=== PATIENT | female | born 1995 | race Asian ===

== ENCOUNTER 2022-03-26 21:41 | Emergency (ER) | payer OTHER ==
--- OUTSIDE RECORDS SUMMARY | 2022-03-26 21:45 | XMS REPORT | Continuity of Care Document ---
:1995 Author Organization [facility] t Address [address] [place] [address] Dr. Leone. [address] [place] [address] Care Team Providers Name Role Phone BEAU CASTILLO Primary Care Physician Unavailable BABS KING Attending Clinician Unavailable Babs Taylor Attending Clinician [place] Christine LEVINE Attending Clinician Doctor Unassigned, [place] Attending Clinician Unavailable Payers Payer Name Policy Type Policy Number Effective Date Expiration Date [place] ERAZO [id number] 2021 HEALTH 00:00:00 Problems Condition Condition Condition Status Onset Resolution Last Treating Co mments Source Name Details Category Date Date Treatment Clinician Date Hemorrhage Hemorrhage Disease Active 2021-0 U nivers affecting affecting 6-29 ity of 00:00: [facility] Supervisio Supervisio Disease Active 2021-0 U nivers n of high n of high 5-31 ity of risk risk 00:00: [place] , , 00 Me dical antepartum antepartum Br anch Multiparit Multiparit Disease Active 2021-0 U nivers y y 5-31 ity of 00:00: [place] [address] Medical Branch Nausea and Nausea and Disease Active 2021-0 U nivers vomiting vomiting 5-31 ity of during during 00:00: [place] 00 Medi patricia prior to prior to Branch 22 weeks 22 weeks gestation gestation Hemorrhoid Hemorrhoid Disease Active U nivers 7-25 ity of 00:00: [place] 00 [facility] Screening Screening Disease Active Uni vers for STD for STD 04-24 [place] of (sexually ([place] transmit[place] transmit[place] 00 [place] dical d disease) d disease) Br anch Vaginal Vaginal Disease Active Overview: Univ ers itching itching 04-24 Formattin ity o f 00:00: g of this [place] 00 note Medical might be Branch different from the original. intermitt ent >1 year, no current sx Allergies, Adverse Reactions, Alerts Allergy Allergy Status Severity Reaction(s) Onset Inactive Treating Comm ents Source Name Type Date Date Clinician NO KNOWN Drug Active Univers ALLERGIE Class ity of S [facility] Social History Social Habit Start Date Stop Date Quantity Comments Source ASSERTION 2021-10-25 [facility] 00:00:00 [facility] Exposure to 2022-03-09 2022-03-19 Not sure [facility] SARS-CoV-2 00:00:00 18:14:00 [facility] (event) [place] Alcohol intake 2022-03-01 2022-03-01 Current [facility] 00:00:00 00:00:00 non-drinker of [facility] alcohol (finding) [place] Tobacco use and 2022-02-20 2022-02-20 Smokeless tobacco Un iversity of exposure 00:00:00 00:00:00 non-user [facility] Sex Assigned At [birth year] Universit y of 00:00:00 00:00:00 [facility] Smoking Status Start Date Stop Date Source Never smoked tobacco [facility] Medications Ordered Filled Start Stop Current Ordering Indication Dosage Frequency Signature Comments Components Source Medication Medication Date Date Medication? Clinician (SIG) Name Name hydrocortis 2021- Yes [id number] 25mg Insert 1 Univers one 25 mg 8-05 08-20 Suppositor ity of suppository 00:00: 04:59 y into [place] 00 :00 rectum in Medical the Branch morning and 1 Suppositor y in the evening. Do all this for 14 days. hydrocortis 2021- Yes [id number] 25mg Insert 1 Univers one 25 mg 8-05 08-20 Suppositor ity of suppository 00:00: 04:59 y into [place] 00 :00 rectum in [facility] morning and 1 Suppositor y in the evening. Do all this for 14 days. hydrocortis 2021- Yes [id number] 25mg Insert 1 Univers one 25 mg 8-05 08-20 Suppositor ity of suppository 00:00: 04:59 y into [place] 00 :00 rectum in [facility] morning and 1 Suppositor y in the evening. Do all this for 14 days. hydrocortis 2021- Yes [id number] 25mg Insert 1 Univers one 25 mg 8-05 08-20 Suppositor ity of suppository 00:00: 04:59 y into [place] as 00 :00 rectum in [facility] morning and 1 Suppositor y in the evening. Do all this for 14 days. docusate Yes [id number] 100mg Take 1 U nivers (COLACE) 6-29 capsule by ity o f 100 mg 00:00: mouth [place] capsule 00 daily. Medical Branch hydrocortis Yes [id number] 25mg Insert 1 Univers one 25 mg 6-29 [place] of suppository 00:00[place] rectum 2 Medical (two) Branch times daily. hydrocortis Yes [id number] Insert Univers one 2.5 % 6-29 into ity of rectal 00:00: rectum 2 [place] cream 00 (two) Medical times Branch daily. docusate Yes [id number] 100mg Take 1 U nivers (COLACE) 6-29 capsule by ity o f 100 mg 00:00: mouth [place] capsule 00 daily. Medical Branch hydrocortis Yes [id number] 25mg Insert 1 Univers one 25 mg 6-29 Suppositor ity of suppository 00:00: [place] rectum 2 Medical (two) Branch times daily. hydrocortis Yes [id number] Insert Univers one 2.5 % 6-29 into ity of rectal 00:00: rectum 2 [place] cream 00 (two) Medical times Branch daily. docusate Yes [id number] 100mg Take 1 U nivers (COLACE) 6-29 capsule by ity o f 100 mg 00:00: mouth [place] capsule 00 daily. Medical Branch hydrocortis 2021-0 Yes [id number] 25mg Insert 1 Univers one 25 mg 6-29 Suppositor ity of suppository 00:00: [place] rectum 2 Medical (two) Branch times daily. hydrocortis 2021-0 Yes [id number] Insert Univers one 2.5 % 6-29 into ity of rectal 00:00: rectum 2 [place] cream 00 (two) Medical times Branch daily. docusate 2021-0 Yes [id number] 100mg Take 1 U nivers (COLACE) 6-29 capsule by ity o f 100 mg 00:00: mouth [place] capsule 00 daily. Medical Branch hydrocortis 0 Yes [id number] 25mg Insert 1 Univers one 25 mg 6-29 Suppositor ity of suppository 00:00: [place] 00 rectum 2 Medical (two) Branch times daily. hydrocortis 2021-0 Yes [id number] Insert Univers one 2.5 % 6-29 into ity of rectal 00:00: rectum 2 [place] cream 00 (two) Medical times Branch daily. docusate 2021-0 Yes [id number] 100mg Take 1 U nivers (COLACE) 6-29 capsule by ity o f 100 mg 00:00: mouth [place] capsule 00 daily. Medical Branch hydrocortis 2021-0 Yes [id number] 25mg Insert 1 Univers one 25 mg 6-29 Suppositor ity of suppository 00:00: [place] 00 rectum 2 Medical (two) Branch times daily. hydrocortis 2021-0 Yes [id number] Insert Univers one 2.5 % 6-29 into ity of rectal 00:00: rectum 2 [place] cream 00 (two) Medical times Branch daily. Immunizations Ordered Filled Immunization Date Status Comments [facility] e Immunization Name Name [facility] 2014-02-02 Completed [facility] 00:00:00 [facility] 2014-02-02 Completed [facility] 00:00:00 [facility] 2014-02-02 Completed [facility] 00:00:00 [facility] 2014-02-02 Completed [facility] 00:00:00 [facility] 2014-02-02 Completed [facility] 00:00:00 [facility] Vital Signs Vital Name Observation Time Observation Value Comments Source Systolic blood 2022-03-19 23:13:00 114 mm[Hg] Univer sity of pressure [facility] Diastolic blood 2022-03-19 23:13:00 68 mm[Hg] Unive rsity of pressure [facility] Heart rate 2022-03-19 23:13:00 87 /min Universi ty of [facility] Body temperature 2022-03-19 23:13:00 36.83 [facility]ie [facility] Respiratory rate 2022-03-19 23:13:00 20 /min Univ ersity of [facility] Body height 2022-03-19 23:13:00 162.6 cm Universi ty of [facility] Body weight 2022-03-19 23:13:00 63.504 kg Universi ty of [facility] BMI 2022-03-19 23:13:00 24.03 kg/m2 Universi ty of [facility] Systolic blood 2022-03-01 15:40:00 108 mm[Hg] Univer sity of pressure [facility] Diastolic blood 2022-03-01 15:40:00 72 mm[Hg] Unive rsity of pressure [facility] Heart rate 2022-03-01 15:40:00 72 /min Universi ty of [facility] Respiratory rate 2022-03-01 15:40:00 20 /min Univ ersity of [facility] Body height 2022-03-01 15:40:00 162.6 cm Universi ty of [place] Medical [place] Body weight 2022-03-01 15:40:00 63.231 kg Universi ty of [facility] BMI 2022-03-01 15:40:00 23.93 kg/m2 Universi ty of [facility] Branch Oxygen saturation in 2022-03-01 15:40:00 99 /min [facility] Arterial blood by [facility] Pulse oximetry Branch Procedures Procedure Date / Time Performing Clinician Source Performed POCT URINALYSIS GLUCOSE 2022-03-19 23:17:00 [facility] 2022-03-01 05:01:00 Doctor Unassigned, No [facility] Branch Encounters Start End Encounter Admission Attending Care Care Encounter Source Date/Time Date/Time Type Type Clinicians Facility Department ID 2022-04-18 2022-04-18 Outpatient Fermin KING [facility] [id number] Univers 15:15:00 15:15:00 INDIONDA ity o f [facility] 2022-04-18 2022-04-18 Outpatient Fermin KING [facility] [id number] Univers 13:45:00 13:45:00 INDIONDA [id number] adriel o [facility] 2022-04-18 2022-04-18 Outpatient Fermin KING [facility] [id number] Univers 13:45:00 13:45:00 INDIONDA adriel o [facility] 2022-03-19 2022-03-19 Outpatient Fermin KING [facility] [id number] Univers 18:00:00 18:27:57 ROSTOMNDA adriel o [facility] 2022-03-19 2022-03-19 [facility] [id number] Univers 18:00:00 18:27:57 Roshunda R FINANCIAL COMPLIANCE MANAGER [id number] ity of Visit REGIONAL [id number] [place] MATERNAL [id number] Med ical & CHILD [address] [place] [address] 2022-03-19 2022-03-19 Outpatient Fermin KING [facility] [id number] Univers 18:00:00 18:00:00 INDIONDA [id number] adriel o [facility] 2022-03-18 2022-03-18 [id number] Univers 15:15:00 15:15:00 ROSTOMNDA itfariha o [facility] 2022-03-05 2022-03-05 [facility] [id number] Univers 00:00:00 00:00:00 Roshunda R FINANCIAL COMPLIANCE MANAGER [id number] ity of REGIONAL [id number] [place] MATERNAL [id number] Med ical & CHILD [address] [place] [address] 2022-03-01 2022-03-01 Office [facility] [id number] Univers 11:30:00 12:00:00 Visit Christine [facility] [id number] ity of CANCER [id number] [facility] - [id number] [facility] Branch 2022-03-01 2022-03-01 Orders Doctor BHARGAV [id number] Univers 00:00:00 00:00:00 Only Unassigned, DINORAH [id number] ity of [place] [facility] [id number] [facility] [id number] [address] Results Test Description Test Time Test Comments Results Result Comments Source POCT URINALYSIS GLUCOSE & PROTEIN 2022-03-19 23:17:00 Test Item Value Reference Range Interpretation Comme nts POCT U PROT (test code = 3259) trace Negative - Negative POCT U GLU (test code = 3256) negative Negative - Negative [facility]
[2022-03-26] MEDS ORDERED: NA CHLORIDE 0.9% 1,000 ML ONE (22:35)
[2022-03-26 22:49] LABS: Absolute Lymphocytes (CBC) 2.6 K/uL (0.7-4.9); Hematocrit 31.1 % (36.0-45.0); MCV 87.6 fL (80-100); MPV 9.2 fL (7.6-11.3); RBC Red Blood Cell Count 3.54 M/uL (3.86-4.86)
[2022-03-26 23:15] LABS: Potassium 3.2 mmol/L (3.5-5.1)
--- NOTE | 2022-03-26 23:43 | ER ---
Nurse's Notes [facility] Name: Donovan Hamilton Age: 26 yrs Sex: Female : 1995 Arrival Date: 03/26/2022 Time: 21:54 Bed 4 Private MD: Diagnosis: GI Bleed/ Gastrointestinal hemorrhage, unspecified-stable;23 weeks gestation of ;Anemia, unspecified;Elevated white blood cell count;Hypokalemia Presentation: 03/26 22:00 Chief complaint: EMS states: called out for shortness of breath, on seen as6 described to EMS a possible panic attack, pt was lethargic, vomiting. upon arrival to ER pt is lethargic, c/o neck pain. able to answer questions appropriately. 22:00 Method Of Arrival: EMS: [facility] as6 22:00 Coronavirus screen: At this time, the client does not indicate any symptoms associated as6 with coronavirus-19. Ebola Screen: No symptoms or risks identified at this time. Initial Sepsis Screen: Does the patient meet any 2 criteria? No. Patient's initial sepsis screen is negative. Does the patient have a suspected source of infection? No. Patient's initial sepsis screen is negative. Risk Assessment: Do you want to hurt yourself or someone else? Patient reports no desire to harm self or others. Onset of symptoms was March 26, 2022. 22:00 Acuity: PATIENCE 2 as6 22:37 Care prior to arrival: Medication(s) given: zofran 4 mg, IV initiated. 20 GA, in the as6 left antecubital area. RECORD CHANGER: 22:22 2, Full Term 1, Premature 0, 0, Living 1 vivi 22:23 Verified as6 Historical: - Allergies: 22:22 No Known Allergies; as6 - Home Meds: 22:22 None [Active]; as6 - PMHx: 22:22 None; as6 - Immunization history:: Adult Immunizations up to date. - Social history:: Smoking status: Patient denies any tobacco usage or history of. - Family history:: not pertinent. Screenin:22 Abuse screen: Denies threats or abuse. Denies injuries from another. Nutritional as6 screening: No deficits noted. Tuberculosis screening: No symptoms or risk factors identified. Fall Risk None identified. Assessment: 22:23 General: Appears ill, Behavior is drowsy. Pain: Complains of pain in neck. Neuro: Level as6 of Consciousness is obeys commands, lethargic. Respiratory: Respiratory effort is even, unlabored. 03/27 00:01 Reassessment: Patient and/or family updated on plan of care and expected duration. Pain vc1 level reassessed. Patient is alert, oriented x 3, equal unlabored respirations, skin warm/dry/pink. Patient states symptoms have improved. Vital Signs: 03/26 22:00 BP 105 / 71; Pulse 73; Resp 18 S; Temp 97.6(O); Pulse Ox 100% on R/A; Weight 54.43 kg as6 (R); Height 5 ft. 4 in. (162.56 cm) (R); Pain 8/10; 03/27 00:01 BP 101 / 64; Pulse 65; Resp 12; Pulse Ox 100% ; vc1 03/26 22:00 Body Mass Index 20.60 (54.43 kg, 162.56 cm) as6 ED Course: 03/26 21:54 Patient arrived in ED. mw2 22:01 Dandy Avendano MD is Attending Physician. vivi 22:04 Jovi Arredondo, NIRU is Primary Nurse. as6 22:22 Triage completed. as6 22:22 Arm band placed on. as6 22:23 Placed in gown. Bed in low position. Call light in reach. Side rails up X2. Adult w/ as6 patient. Client placed on continuous cardiac and pulse oximetry monitoring. NIBP monitoring applied. 22:37 Maintain EMS IV. Dressing intact. Good blood return noted. Site clean \T\ dry. Gauge \T\ as 6 site: 20g LAC. 23:30 US OB Limited In Process Unspecified. EDMS 23:43 Chun Godinez MD is Referral Physician. vivi 23:43 Sheila Ruiz MD is Referral Physician. vivi 03/27 00:02 No provider procedures requiring assistance completed. IV discontinued, intact, vc1 bleeding controlled, No redness/swelling at site. Pressure dressing applied. Administered Medications: 03/26 22:36 Drug: NS 0.9% 1000 ml Route: IV; Rate: 1 bolus; Site: left antecubital; as6 23:45 Drug: Potassium Effervescent Tablet 25 mEq Route: PO; as6 Medication: 03/27 00:02 VIS not applicable for this client. vc1 Outcome: 03/26 23:43 Discharge ordered by . vivi 03/27 00:02 Discharged to home ambulatory, with significant other. vc1 Condition: good Discharge instructions given to patient, Instructed on discharge instructions, follow up and referral plans. Demonstrated understanding of instructions, follow-up care. 00:09 Patient left the ED. vc1 Signatures: Dispatcher [employer] EDCT Dandy Avendano MD MD cha [place], MyKena 2 Jovi Arredondo RN RN as6 Yue Cerda RN RN vc1 Corrections: (The following items were deleted from the chart) 03/26 22:22 22:04 Chief complaint: as6 as6
--- NOTE | 2022-03-26 23:44 | EDPHYS ---
Physician Documentation [facility] Name: Donovan Hamilton Age: 26 yrs Sex: Female : 1995 Arrival Date: 03/26/2022 Time: 21:54 Bed 4 Private MD: ED Physician Dandy Avendano HPI: 03/26 22:22 This 26 yrs old Female presents to ER via EMS with complaints of rectal bleeding, vivi 30 weeks . 22:22 This 26 yrs old Female presents to ER via EMS with complaints of rectal bleeding vivi , 30 weeks . 22:22 The patient presents to the emergency department with rectal bleeding, in toilet bowl. vivi Onset: The symptoms/episode began/occurred 1 week(s) ago. Abdominal pain: none is appreciated. Modifying factors: The symptoms are alleviated by nothing, the symptoms are aggravated by nothing. The patient presents to the emergency department with abdominal pain, that started yesterday. The estimated gestational age is 30 weeks. course: care: at a clinic. FOOT GATHERER: 22:22 2, Full Term 1, Premature 0, 0, Living 1 vivi 22:23 Verified as6 Historical: - Allergies: 22:22 No Known Allergies; as6 - Home Meds: 22:22 None [Active]; as6 - PMHx: 22:22 None; as6 - Immunization history:: Adult Immunizations up to date. - Social history:: Smoking status: Patient denies any tobacco usage or history of. - Family history:: not pertinent. ROS: 22:22 Constitutional: Negative for fever, chills, and weight loss, Eyes: Negative for injury, vivi pain, redness, and discharge, ENT: Negative for injury, pain, and discharge, Neck: Negative for injury, pain, and swelling, Cardiovascular: Negative for chest pain, palpitations, and edema, Respiratory: Negative for shortness of breath, cough, wheezing, and pleuritic chest pain, Back: Negative for injury and pain, : Negative for injury, bleeding, discharge, and swelling, MS/Extremity: Negative for injury and deformity, Skin: Negative for injury, rash, and discoloration, Neuro: Negative for headache, weakness, numbness, tingling, and seizure, Psych: Negative for depression, anxiety, suicide ideation, homicidal ideation, and hallucinations, Allergy/Immunology: Negative for hives, rash, and allergies, Endocrine: Negative for neck swelling, polydipsia, polyuria, polyphagia, and marked weight changes, Hematologic/Lymphatic: Negative for swollen nodes, abnormal bleeding, and unusual bruising. 22:22 Abdomen/GI: Positive for abdominal pain, abdominal cramps, abdominal distension, rectal pain. Exam: 22:28 Constitutional: This is a well developed, well nourished patient who is awake, alert, vivi and in no acute distress. Head/Face: Normocephalic, atraumatic. Eyes: Pupils equal round and reactive to light, extra-ocular motions intact. Lids and lashes normal. Conjunctiva and sclera are non-icteric and not injected. Cornea within normal limits. Periorbital areas with no swelling, redness, or edema. ENT: Nares patent. No nasal discharge, no septal abnormalities noted. Tympanic membranes are normal and external auditory canals are clear. Oropharynx with no redness, swelling, or masses, exudates, or evidence of obstruction, uvula midline. Mucous membranes moist. Neck: Trachea midline, no thyromegaly or masses palpated, and no cervical lymphadenopathy. Supple, full range of motion without nuchal rigidity, or vertebral point tenderness. No Meningismus. Chest/axilla: Normal chest wall appearance and motion. Nontender with no deformity. No lesions are appreciated. Cardiovascular: Regular rate and rhythm with a normal S1 and S2. No gallops, murmurs, or rubs. Normal PMI, no JVD. No pulse deficits. Respiratory: Lungs have equal breath sounds bilaterally, clear to auscultation and percussion. No rales, rhonchi or wheezes noted. No increased work of breathing, no retractions or nasal flaring. Back: No spinal tenderness. No costovertebral tenderness. Full range of motion. Pelvic Exam: Normal external genitalia. Speculum exam with closed cervical os, no discharge or bleeding noted. Bimanual exam with normal adnexa, no adnexal or cervical motion tenderness. Normal uterus. Skin: Warm, dry with normal turgor. Normal color with no rashes, no lesions, and no evidence of cellulitis. MS/ Extremity: Pulses equal, no cyanosis. Neurovascular intact. Full, normal range of motion. Neuro: Awake and alert, GCS 15, oriented to person, place, time, and situation. Cranial nerves II-XII grossly intact. Motor strength 5/5 in all extremities. Sensory grossly intact. Cerebellar exam normal. Normal gait. Psych: Awake, alert, with orientation to person, place and time. Behavior, mood, and affect are within normal limits. 22:28 Abdomen/GI: Bowel sounds: active, Palpation: abdomen is soft and non-tender, Liver: no appreciated palpable abnormalities, Hernia: not appreciated. 22:31 Abdomen/GI: Rectal exam: is unremarkable, rectal tone normal, Stool: normal, guaiac vivi negative, hemorrhoid(s), are not appreciated, mass, is not appreciated, swelling, is not appreciated, tenderness, is not appreciated, fecal impaction, is not appreciated, the exam is chaperoned by a family member. Vital Signs: 22:00 BP 105 / 71; Pulse 73; Resp 18 S; Temp 97.6(O); Pulse Ox 100% on R/A; Weight 54.43 kg as6 (R); Height 5 ft. 4 in. (162.56 cm) (R); Pain 8/10; 03/27 00:01 BP 101 / 64; Pulse 65; Resp 12; Pulse Ox 100% ; vc1 03/26 22:00 Body Mass Index 20.60 (54.43 kg, 162.56 cm) as6 MDM: 03/26 22:01 Patient medically screened. [facility] 22:30 Differential diagnosis: diverticulitis, hemorrhoids. Data reviewed: vital signs, nurses [facility] notes, lab test result(s), radiologic studies, ultrasound. Data interpreted: bus monitor: rate is 73 beats/min, rhythm is regular, Pulse oximetry: on room air is 100 %. Counseling: I had a detailed discussion with the patient and/or guardian regarding: the historical points, exam findings, and any diagnostic results supporting the discharge/admit diagnosis, lab results, radiology results. 03/26 22:16 Order name: [employer] [facility] 03/26 22:16 Order name: Basic Metabolic Panel; Complete Time: 23:23 [facility] 03/26 22:16 Order name: CBC with Diff; Complete Time: 23:23 [facility] 03/26 22:16 Order name: US OB Limited [facility] 03/26 22:32 Order name: UDS [facility] 03/26 23:51 Order name: Urine Dipstick-Ancillary [facility] 03/26 22:16 Order name: IV Saline Lock; Complete Time: 22:22 [facility] 03/26 22:16 Order name: Labs collected and sent; Complete Time: 22:36 [facility] 03/26 22:16 Order name: NPO; Complete Time: 22:22 [facility] 03/26 22:16 Order name: Urine Dipstick-Ancillary (obtain specimen); Complete Time: 23:55 vivi Administered Medications: 22:36 Drug: NS 0.9% 1000 ml Route: IV; Rate: 1 bolus; Site: left antecubital; as6 23:45 Drug: Potassium Effervescent Tablet 25 mEq Route: PO; as6 Disposition Summary: 03/26/22 23:43 Discharge Ordered Location: Home vivi Problem: new vivi Symptoms: have improved vivi Condition: Stable vivi Diagnosis - GI Bleed/ Gastrointestinal hemorrhage, unspecified - stable vivi - 23 weeks gestation of vivi - Anemia, unspecified vivi - Elevated white blood cell count vivi - Hypokalemia vivi Followup: vivi - With: Private Physician - When: 2 - 3 days - Reason: Recheck today's complaints, Continuance of care, Re-evaluation by your physician Followup: vivi - With: - When: 2 - 3 days - Reason: Recheck today's complaints, Re-evaluation by your physician Followup: vivi - With: - When: 2 - 3 days - Reason: Recheck today's complaints, Re-evaluation by your physician Discharge Instructions: - Discharge Summary Sheet vivi - Anemia vivi - Potassium Content of Foods vivi - Gastrointestinal Bleeding vivi - Care vivi - Rectal Bleeding vivi - Vaginal Bleeding During , Second Trimester vivi - Vaginal Bleeding During , Third Trimester vivi - Second Trimester of vivi - Rectal Bleeding, [id number] vivi - Lower Gastrointestinal Bleeding vivi Forms: - Medication Reconciliation Form vivi - Thank You Letter vivi - Antibiotic Education vivi - Prescription Opioid Use vivi Signatures: Dispatcher [employer] EDDandy Francisco MD MD cha Slawson, Ashby, RN RN as6
[2022-03-26] MEDS ORDERED: POTASSIUM 25 MEQ EFFERV TAB ONE (23:46)
[2022-03-26 23:51] LABS: Urine Blood Negative (Negative); Urine Glucose Negative (Negative); Urine Protein Negative (Negative); Urine Specific Gravity 1.015 (1.005-1.030); Urine pH 7.5 (5.0-7.0)
[2022-03-27 00:30] LABS: Barbiturates NEGATIVE (NEGATIVE); Benzodiazepines NEGATIVE (NEGATIVE); Cocaine NEGATIVE (NEGATIVE); METHAMPHETAM NEGATIVE (NEGATIVE); Methadone NEGATIVE (NEGATIVE); Opiates NEGATIVE (NEGATIVE); Phencyclidine NEGATIVE (NEGATIVE); THC Cannibis POSITIVE (NEGATIVE)
--- NOTE | 2022-03-27 16:06 | RAD REPORT ---
EXAM DESCRIPTION: OB Limited CLINICAL HISTORY: 26 years Female, ABD CRAMPING, TECHNIQUE: Real-time transabdominal sonography of the pelvis was performed. COMPARISON: None. FINDINGS: There is a single living fetus in cephalic presentation. The placenta is posterior without previa. The amniotic fluid volume is within normal limits. Cardiac activity is present with he art tones recorded at 153 beats per minute. The cervix was not well visualized. The following biometr ic data was obtained: Biparietal diameter: Not measured. Head circumference: Not measured. Abdominal circumference: 18.0 cm, 22 weeks 6 days Femur length: 4.0 cm, 23 weeks 0 days Ultrasound composite age 22 weeks 6 days, with US DAVINA of 07/24/2022. LMP age 23 weeks 5 days , with LMP DAVINA of 07/18/2022. anatomic survey was not performed as this was a limited OB ultrasound per clinicians request. Bilateral ovaries were not well visualized on this exam. IMPRESSION: 1. Single live intrauterine with gestational age of 22 weeks 6 days with DAVINA of 07/24/2022. Electronically signed by: Omar Louie MD 03/26/2022 11:54 PM CDT Due to temporary technical issues with the PACS/Fluency reporting system, reports are being signed by the in house radiologists without review as a courtesy to insure prompt reporting. The interpreting radiologist is fully responsible for the content of the report.
== END 2022-03-27 00:09 | disposition home or self-care (01) ==
LOC: ER 21:41
DX: O99.612 Diseases of the digestive system complicating pregnancy, second trimester (principal); O99.619 Diseases of the digestive system complicating pregnancy, unspecified trimester; O99.012 Anemia complicating pregnancy, second trimester; O99.282 Endocrine, nutritional and metabolic diseases complicating pregnancy, second trimester; E87.6 Hypokalemia; O99.112 Other diseases of the blood and blood-forming organs and certain disorders involving the immune mechanism complicating pregnancy, second trimester; D72.829 Elevated white blood cell count, unspecified; Z3A.23 23 weeks gestation of pregnancy
CPT/HCPCS: 85025; 80048; 36415; 86900; 86901; 81003; 80307; 76815; J7030; 99283